=== PATIENT | female | born 1935 ===

== ENCOUNTER → 2019-07-18 | Outpatient (CLI) | payer MEDICARE, OTHER ==
[~2019-07-18] MED LIST: Amoxicillin500 MG PO; Cipro500 MG PO; LEVSOD100 PO; LEVSOD125 PO; SIMV10 PO; Simvastatin10 MG PO
== END | disposition home or self-care (01) ==
LOC: LAB SHORT 10:44 → PLD 10:44
DX: D48.5 Neoplasm of uncertain behavior of skin (principal)
CPT/HCPCS: 88305

== ENCOUNTER → 2021-06-24 | Outpatient (CLI) | payer MEDICARE ==
[2021-06-24 15:51] LABS: Appearance, Urine Clear (Clear); Bilirubin, Urine Neg (Neg); Blood, Urine Neg (Neg); Color, Urine Yellow (P-Yellow); Glucose Qualitative, Urine Neg (Neg); Ketones, Urine Neg (Neg); Leukocyte Esterase, Urine 2+ (Neg); Nitrite, Urine Neg (Neg); Protein, Urine 1+ (Neg); Urobilinogen, Urine NORM (Normal)
[2021-06-24 17:02] LABS: Bacteria Mod /hpf; Red Blood Cells, Urine Not Seen /hpf (0-2); Squamous Epithelial Cells Few /hpf (Few)
== END | disposition home or self-care (01) ==
LOC: LAB SHORT 11:15 → LAB 11:15 → EDSTATUS 06-21 10:25 → LAB FUT 06-21 10:25
PROVIDERS: Internal Medicine
DX: R82.90 Unspecified abnormal findings in urine (principal)
CPT/HCPCS: 81001; 87086

== ENCOUNTER → 2022-06-04 | Outpatient (CLI) | payer MEDICARE | END | disposition home or self-care (01) | LOC: LAB SHORT 14:54 → PLD 14:54 | DX: D04.72 Carcinoma in situ of skin of left lower limb, including hip (principal) | CPT/HCPCS: 88305 ==

== ENCOUNTER → 2022-07-16 | Outpatient (CLI) | payer MEDICARE | END | disposition home or self-care (01) | LOC: LAB SHORT 12:00 | DX: R30.0 Dysuria (principal) | CPT/HCPCS: 87086 ==

== ENCOUNTER 2023-07-06 15:10 | Emergency (ER) | payer OTHER, MEDICARE ==
[~2023-07-06] VITALS: Ht 160 cm; Wt 61.7 kg
[2023-07-06 15:18] VITALS: BP 140/86
[2023-07-06] MEDS ORDERED: Norco 5-325 Ta1 EACH PO (16:46)
== END 2023-07-06 16:55 | disposition home or self-care (01) ==
LOC: ER 15:10
DX: S32.029A Unspecified fracture of second lumbar vertebra, initial encounter for closed fracture (principal); W01.10XA Fall on same level from slipping, tripping and stumbling with subsequent striking against unspecified object, initial encounter; Z88.8 Allergy status to other drugs, medicaments and biological substances; Z79.899 Other long term (current) drug therapy; I25.10 Atherosclerotic heart disease of native coronary artery without angina pectoris; E03.9 Hypothyroidism, unspecified; E78.00 Pure hypercholesterolemia, unspecified
CPT/HCPCS: 72100; 99283-25; A9270

== ENCOUNTER 2024-06-05 21:00 | Emergency (ER) | payer MEDICARE ==
[~2024-06-05] VITALS: Ht 160 cm; Wt 62.6 kg
[~2024-06-05 21:00] MED LIST changes: +Norco 5-325 Ta1 EACH PO
[2024-06-05 21:39] LABS: BASOPHILS ABSOLUTE AUTO 0.01 K/mm3 (0.00-0.23); BASOPHILS PERCENT AUTO 0 % (0-2); EOSINOPHILS ABSOLUTE AUTO 0.03 K/mm3 (0.00-0.68); EOSINOPHILS PERCENT AUTO 1 % (0-6); Hematocrit 29.9 % (33.0-51.0); Hemoglobin 10.2 g/dL (11.5-16.0); IMMATURE GRAN PERCENT AUTO 0 % (0-1); LYMPHOCYTES ABSOLUTE AUTO 0.94 K/mm3 (0.84-5.20); LYMPHOCYTES PERCENT AUTO 39 % (21-46); MONOCYTES ABSOLUTE AUTO 0.21 K/mm3 (0.16-1.47); MONOCYTES PERCENT AUTO 9 % (4-13); Mean Corpuscular HGB 32.3 pg (26.0-34.0); Mean Corpuscular HGB Conc 34.1 g/dL (31.5-36.5); Mean Corpuscular Volume 95 fL (80-100); Mean Platelet Volume 9.7 fL (9.1-12.4); NEUTROPHILS PERCENT AUTO 50 % (41-73); Platelet Count 147 K/mm3 (150-400); RDW Standard Deviation 45.2 fL (35.1-46.3); Red Blood Cell Count 3.16 M/mm3 (3.80-5.20); White Blood Cell Count 2.39 K/mm3 (4.00-11.30)
[2024-06-05 21:57] LABS: Albumin, Blood 3.4 g/dL (3.4-5.0); Albumin/Globulin Ratio 1.1 (0.8-1.8); Bilirubin, Total 0.3 mg/dL (0.1-1.0); Bun/Creatinine Ratio 15.1 (12.0-20.0); Calcium, Blood 7.9 mg/dL (8.5-10.1); Creatinine, Blood 1.26 mg/dL (0.40-1.00); Globulin, Blood 3.2 g/dL (2.2-4.0); Total Protein, Blood 6.6 g/dL (6.4-8.2)
[2024-06-05 22:03] LABS: Source, Urine Clean Catch
[2024-06-05] MEDS ORDERED: KETOROLAC TROMET3 ML BOTHEYES (22:06)
[2024-06-05] MEDS ORDERED: OCUFLOX511 BOTHEYES (22:06)
[2024-06-05] MEDS ORDERED: PRED FORTE5 M1 BOTHEYES (22:06)
[2024-06-05] MEDS ORDERED: Simvastatin10 MG PO (22:07)
[2024-06-05] MEDS ORDERED: SYNTHROID88 MCG PO (22:07)
[2024-06-05 22:14] LABS: Bilirubin, Urine Neg (Neg); Blood, Urine 1+ (Neg); Glucose Qualitative, Urine Neg (Neg); Ketones, Urine 1+ (Neg); Leukocyte Esterase, Urine 3+ (Neg); Nitrite, Urine Neg (Neg); Protein, Urine 1+ (Neg); Specific Gravity, Urine 1.015 (1.003-1.022); Urobilinogen, Urine NORM (Normal)
[2024-06-05 22:15] LABS: Appearance, Urine Hazy (Clear); Color, Urine Pale Yellow (P-Yellow)
[2024-06-05 22:16] LABS: Bacteria Few /hpf; Red Blood Cells, Urine 0-2 /hpf (0-2); Squamous Epithelial Cells Rare /hpf (Few)
[2024-06-05] MEDS ORDERED: Cyclobenzaprine HCl 10 MG Tab PO ONE (23:05)
[2024-06-05] MEDS ORDERED: Acetaminophen 500 MG Tab PO ONE (23:05)
[2024-06-05] MEDS ORDERED: Lidocaine 4% 1 Patch TOP ONE (23:10)
[2024-06-05] MEDS ORDERED: LIDO700A20 TOP (23:29)
[2024-06-05] MEDS ORDERED: Cyclobenzaprine10 MG PO (23:29)
[2024-06-05 23:30] VITALS: BP 168/70
[2024-06-05] MEDS ORDERED: Keflex500 MG PO (23:30)
[2024-06-05] MEDS ORDERED: Cephalexin Monohydrate 500 MG Cap PO ONE (23:35)
== END 2024-06-05 23:43 | disposition home or self-care (01) ==
LOC: ER 21:00
PROVIDERS: Physician Assistant
DX: N13.6 Pyonephrosis (principal); D61.818 Other pancytopenia; Z88.8 Allergy status to other drugs, medicaments and biological substances; Z79.899 Other long term (current) drug therapy; E03.9 Hypothyroidism, unspecified; E78.00 Pure hypercholesterolemia, unspecified
CPT/HCPCS: 76770; 80053; 81001; 83690; 83735; 85025; A9270

== ENCOUNTER 2024-08-23 09:03 | Day surgery (SDC) | payer MEDICARE ==
[~2024-08-23] VITALS: Ht 160 cm; Wt 61.2 kg
[~2024-08-23 09:03] MED LIST changes: +Balanced Salt Epinephrine Irrigation Solution 500 mL IR SCH; +Cyclobenzaprine10 MG PO; +KETOROLAC TROMET3 ML BOTHEYES; +Keflex500 MG PO; +LIDO700A20 TOP; +Lidocaine HCl/Pf 1% 5 ML VIAL ONE; +Lidocaine HCl/Pf 1% 5 ML VIAL XX SCH; +Moxifloxacin HCL 0.5 MG/0.1 ML 0.4MLSYR RIGHTEYE SCH; +NS 500 ML IV ONE; +OCUFLOX511 BOTHEYES; +PHENYLEPHRINE\\TROPICAMIDE\\TETRACAINE OPHTHALMIC DILATING SOLN RIGHTEYE PRN; +PRED FORTE5 M1 BOTHEYES; +Povidone-Iodine 450 DROP/30 ML Solution ONE; +Povidone-Iodine 450 DROP/30 ML Solution RIGHTEYE SCH; +SYNTHROID88 MCG PO; +Tetracaine HCl/Pf 0.5% Opth Soln 4 ml ONE
[2024-08-23] MEDS ORDERED: Midazolam HCl 1MG / ML 2ML Vial ONE (10:32)
[2024-08-23] MEDS ORDERED: FentaNYL Citrate 50 MCG/ML 2 ML Injection ONE (10:32)
[2024-08-23 11:23] VITALS: BP 155/82
== END 2024-08-23 11:35 | disposition home or self-care (01) ==
LOC: ORSCSDS 09:03
PROVIDERS: Student in an Organized Health Care Education/Training Program
PROC: 08RJ3JZ Replacement of Right Lens with Synthetic Substitute, Percutaneous Approach (ICD-10-PCS; principal; 2024-08-23 10:30)
DX: H25.813 Combined forms of age-related cataract, bilateral (principal); J45.909 Unspecified asthma, uncomplicated; H11.002 Unspecified pterygium of left eye; E78.5 Hyperlipidemia, unspecified; I12.9 Hypertensive chronic kidney disease with stage 1 through stage 4 chronic kidney disease, or unspecified chronic kidney disease; N18.9 Chronic kidney disease, unspecified; E03.9 Hypothyroidism, unspecified; E55.9 Vitamin D deficiency, unspecified; Z79.899 Other long term (current) drug therapy
CPT/HCPCS: J2001; J2003; J2250; J3010; J7040; V2632

== ENCOUNTER 2024-08-30 12:56 | Day surgery (SDC) | payer MEDICARE ==
[~2024-08-30] VITALS: Ht 160 cm; Wt 60.6 kg
[~2024-08-30 12:56] MED LIST changes: -Lidocaine HCl/Pf 1% 5 ML VIAL ONE; +Moxifloxacin HCL 0.5 MG/0.1 ML 0.4MLSYR LEFTEYE SCH; -Moxifloxacin HCL 0.5 MG/0.1 ML 0.4MLSYR RIGHTEYE SCH; +PHENYLEPHRINE\\TROPICAMIDE\\TETRACAINE OPHTHALMIC DILATING SOLN LEFTEYE PRN; -PHENYLEPHRINE\\TROPICAMIDE\\TETRACAINE OPHTHALMIC DILATING SOLN RIGHTEYE PRN; +Povidone-Iodine 450 DROP/30 ML Solution LEFTEYE SCH; -Povidone-Iodine 450 DROP/30 ML Solution RIGHTEYE SCH
[2024-08-30 14:09] VITALS: BP 168/80
--- NOTE | 2024-08-30 14:11 | NUR ---
08/30/24 1411 Trudy Covarrubias PT SAID SHE HAD A LITTLE STINGING IN LEFT EYE, DOES NOT REMEMBER HER RIGHT SIDE STINGING. NO N/V WITH HER FLUID SHE IS DRINKING. JUANI, HER IS DRIVING HER HOME.
== END 2024-08-30 14:12 | disposition home or self-care (01) ==
LOC: ORSCSDS 12:56
PROVIDERS: Student in an Organized Health Care Education/Training Program
PROC: 08RK3JZ Replacement of Left Lens with Synthetic Substitute, Percutaneous Approach (ICD-10-PCS; principal; 2024-08-30 14:30)
DX: H25.812 Combined forms of age-related cataract, left eye (principal); H21.81 Floppy iris syndrome; Z96.1 Presence of intraocular lens; H35.3130 Nonexudative age-related macular degeneration, bilateral, stage unspecified; H11.002 Unspecified pterygium of left eye; I12.9 Hypertensive chronic kidney disease with stage 1 through stage 4 chronic kidney disease, or unspecified chronic kidney disease; N18.9 Chronic kidney disease, unspecified; J45.909 Unspecified asthma, uncomplicated; E03.9 Hypothyroidism, unspecified; Z85.850 Personal history of malignant neoplasm of thyroid; Z79.899 Other long term (current) drug therapy
CPT/HCPCS: J7040; V2632